=== PATIENT | female | born 1965 | race Caucasian/White ===

== ENCOUNTER 2016-08-04 15:33 | Emergency (ER) | payer OTHER ==
[~2016-08-04] VITALS: Ht 154.9 cm; Wt 137.0 kg
[~2016-08-04 15:33] MED LIST: ALDACTONE25 MG PO; AMPICILLIN500 MG PO; ANTIVERT12.5 MG PO; AZU500; AZU500 PO; BACO TOP; CAL240 PO; CEPHALEXIN250 MG; CLONIDINE HCL0.1 MG PO; COLACE100 MG PO; CYMBALTA30 M1 PO; DELTASONE5 MG PO; ECO81 PO; ENALAPRIL20 MG; ENALAPRIL20 MG PO; FER300 PO; FERRALET 901 TAB; FLE10 PO; FUROSEMIDE20 MG; GLU5 PO; GLU850 PO; HIBICLENS118 ML TOP; IBUPROFEN400 MG; K10; LAC PO; LASIX40 MG; LEVAQUIN750 MG PO; LIPI10 PO; LYRICA150 M1 PO; MEDDP PO; METFORMIN ER500 M1 PO; METFORMIN500 MG PO; METHOTREXATE2.5; METHOTREXATE2.5 M2 PO; NOR10T PO; OMEPRAZOLE DR20 M1 PO; ORAPRED ODT10 MG PO; ORASONE5 MG PO; PLA200; PLA200 PO; PRE5 PO; PREDNISONE1 MG; PROVENTIL0.09 MG/A1 INH; QVAR0.04 MG/Ac; SALMETEROL IH; SOMA350 MG PO; SPIRIVA18 MC1 INH; TIZANIDINE2 MG; VENTOLIN H0.09 MG/A1 INH; VERAPAMIL HCL240 MG PO; VERAPAMIL240 MG; VERAPAMIL240 MG PO; VITC PO; ZOC10 PO; [UNRECOGNIZED DRUG - OTHER] PO; [UNRECOGNIZED DRUG - OTHER] PO; [UNRECOGNIZED DRUG - REMARK] PO
[2016-08-04 16:53] LABS: BASOPHIL % 0.7 % (0-2); CALCIUM 8.3 mg/dL (8.5-10.1); CARBON DIOXIDE 35.5 mmol/L (21-32); CHLORIDE SERUM 99 mmol/L (98-107); CREATININE SERUM 0.9 mg/dL (0.6-1.0); GFR1 > 60 mL/min; GLUCOSE SERUM 355 mg/dL (74-106); PLATELET COUNT 262 x10^3mcL (130-400); SODIUM SERUM 134 mmol/L (136-145)
[2016-08-04 16:54] LABS: RED CELL DISTRIBUTION WIDTH 19.7 % (11.5-14.5)
[2016-08-04 17:15] LABS: ALBUMIN 2.7 g/dL (3.4-5.0); ALKALINE PHOSPHATASE 146 U/L (46-116); ALT/SGPT 16 U/L (14-59); AST/SGOT 14 U/L (15-37); BILIRUBIN TOTAL 0.24 mg/dL (0.20-1.00); CK-MB < 0.5 ng/mL (0-3.6); CREATINE KINASE 41 U/L (26-192); TOTAL PROTEIN, SERUM 8.1 g/dL (6.4-8.2)
[2016-08-04 18:35] LABS: UA SPECIFIC GRAVITY 1.015 (1.005-1.035); microscopic required? YES; urine erythrocyte TRACE (NEGATIVE)
[2016-08-04 20:30] VITALS: BP 152/81
== END 2016-08-04 20:30 | disposition home or self-care (01) ==
LOC: ED 15:33
PROVIDERS: Emergency Medicine
DX: N39.0 Urinary tract infection, site not specified (principal); I10 Essential (primary) hypertension; E11.65 Type 2 diabetes mellitus with hyperglycemia; F41.9 Anxiety disorder, unspecified; M79.7 Fibromyalgia; Z79.84 Long term (current) use of oral hypoglycemic drugs
CPT/HCPCS: 82962; 83880; 85378; J1815; J1885; J7030; J7613; J7644; Q0092

== ENCOUNTER 2016-10-09 16:20 | Inpatient (IN) | payer OTHER ==
[~2016-10-09] VITALS: Ht 154.9 cm; Wt 136.7 kg
[~2016-10-09 16:20] MED LIST changes: -IBUPROFEN400 MG; +IBUPROFEN400 MG PO; -K10; +K10 PO
[2016-10-09 19:57] LABS: CALCIUM 8.5 mg/dL (8.5-10.1); CARBON DIOXIDE 32.9 mmol/L (21-32); CHLORIDE SERUM 96 mmol/L (98-107); CREATININE SERUM 0.7 mg/dL (0.6-1.0); GFR1 > 60 mL/min; GLUCOSE SERUM 197 mg/dL (74-106); POTASSIUM SERUM 3.6 mmol/L (3.5-5.1); SODIUM SERUM 135 mmol/L (136-145)
[2016-10-09 20:00] LABS: ALKALINE PHOSPHATASE 124 U/L (46-116); ALT/SGPT 19 U/L (14-59); AST/SGOT 16 U/L (15-37); BILIRUBIN TOTAL 0.38 mg/dL (0.20-1.00)
[2016-10-09 20:02] LABS: ALBUMIN 2.7 g/dL (3.4-5.0); TOTAL PROTEIN, SERUM 8.5 g/dL (6.4-8.2)
[2016-10-09 20:13] LABS: BASOPHIL % 0.3 % (0-2); PLATELET COUNT 263 x10^3mcL (130-400)
[2016-10-09 20:26] LABS: RED CELL DISTRIBUTION WIDTH 18.3 % (11.5-14.5)
[2016-10-09] MEDS ORDERED: KLOR-CON M2020 MEQ PO (20:28)
[2016-10-09] MEDS ORDERED: ROBAXIN-750750 MG PO (20:30)
[2016-10-09] MEDS ORDERED: OMEPRAZOLE40 M1 PO (20:31)
[2016-10-09] MEDS ORDERED: METFORMIN HCL500 MG PO (20:33)
[2016-10-09] MEDS ORDERED: AMITRIPTYLINE H10 MG PO (20:34)
[2016-10-09] MEDS ORDERED: KLOR-CON SPRINK8 MEQ PO (20:37)
[2016-10-09] MEDS ORDERED: GLUCOTROL5 MG PO (20:38)
[2016-10-09 20:43] LABS: rbc morphology (normal/abnorm) ABNORMAL (NORMAL)
[2016-10-09 21:14] VITALS: BP 142/82
[2016-10-09 21:17] LABS: CHOLESTEROL/HDL RATIO 6.3; MAGNESIUM 1.7 mg/dL (1.8-2.4); PHOSPHOROUS 2.2 mg/dL (2.5-4.9)
[2016-10-09 21:24] LABS: FREE T4 1.21 ng/dL (0.76-1.46); FREE THYROXINE INDEX 2.8 ug/dL (1.4-4.5); T4(THYROXINE) 8.9 ug/dL (4.7-13.3)
[2016-10-09 21:25] LABS: T3 TOTAL 1.28 ng/mL
[2016-10-09 22:55] VITALS: BP 142/82
[2016-10-09] MEDS ORDERED: TRAMADOL HCL50 MG PO (23:33)
[2016-10-10 00:42] LABS: UA SPECIFIC GRAVITY 1.015 (1.005-1.035); microscopic required? YES; urine erythrocyte 1+ (NEGATIVE)
[2016-10-10 00:56] LABS: AMPHETAMINE QUAL UR NONE DETECTED (NEG <=1000)
[2016-10-10 04:37] LABS: BASOPHIL % 0.1 % (0-2); PLATELET COUNT 237 x10^3mcL (130-400)
[2016-10-10 04:46] LABS: CALCIUM 8.6 mg/dL (8.5-10.1); CARBON DIOXIDE 37.4 mmol/L (21-32); CHLORIDE SERUM 96 mmol/L (98-107); CREATININE SERUM 0.9 mg/dL (0.6-1.0); GFR1 > 60 mL/min; GLUCOSE SERUM 284 mg/dL (74-106); PHOSPHOROUS 4.4 mg/dL (2.5-4.9); SODIUM SERUM 136 mmol/L (136-145)
[2016-10-10 06:56] VITALS: BP 145/75
[2016-10-10 09:33] VITALS: BP 143/75
[2016-10-10 14:15] VITALS: BP 138/75
[2016-10-10 17:27] VITALS: BP 144/75
[2016-10-10 20:37] VITALS: BP 132/62
[2016-10-11 05:31] VITALS: BP 149/71
[2016-10-11 07:14] LABS: BASOPHIL % 0.4 % (0-2); PLATELET COUNT 226 x10^3mcL (130-400)
[2016-10-11 07:39] LABS: RED CELL DISTRIBUTION WIDTH 18.2 % (11.5-14.5)
[2016-10-11 07:56] LABS: CALCIUM 8.6 mg/dL (8.5-10.1); CARBON DIOXIDE 37.4 mmol/L (21-32); CHLORIDE SERUM 99 mmol/L (98-107); CREATININE SERUM 0.7 mg/dL (0.6-1.0); GFR1 > 60 mL/min; GLUCOSE SERUM 186 mg/dL (74-106); PHOSPHOROUS 3.6 mg/dL (2.5-4.9); POTASSIUM SERUM 4.2 mmol/L (3.5-5.1); SODIUM SERUM 139 mmol/L (136-145)
[2016-10-11 09:58] VITALS: BP 133/72
[2016-10-11 13:39] VITALS: BP 140/74
[2016-10-11 15:55] VITALS: BP 140/74
[2016-10-11] MEDS ORDERED: BACTROBAN21 (16:08)
[2016-10-11] MEDS ORDERED: VITC PO (17:20)
[2016-10-11] MEDS ORDERED: GLU10 PO (17:20)
[2016-10-11] MEDS ORDERED: LEVEMIR100 U/M1 SC (17:21)
[2016-10-11] MEDS ORDERED: METFORMIN HCL1000 MG PO (17:22)
[2016-10-11] MEDS ORDERED: CIPRO250 MG PO (17:23)
[2016-10-11] MEDS ORDERED: LAC PO (17:24)
[2016-10-11] MEDS ORDERED: BG FS (17:24)
[2016-10-11] MEDS ORDERED: CYMBALTA30 M1 PO (17:25)
[2016-10-11] MEDS ORDERED: NEU300 PO (17:25)
[2016-10-11] MEDS ORDERED: HIBICLENS118 ML TOP (17:30)
[2016-10-12 10:12] VITALS: Ht 154.9 cm; Wt 136.7 kg
== END 2016-10-11 18:20 | disposition home or self-care (01) | DRG 203 ==
LOC: ED 16:20 → DU 20:27
PROVIDERS: Emergency Medicine; Family Medicine; ADMIT Family Medicine
DX: M94.0 Chondrocostal junction syndrome [Tietze] (principal); N17.0 Acute kidney failure with tubular necrosis; E43 Unspecified severe protein-calorie malnutrition; M32.9 Systemic lupus erythematosus, unspecified; I11.0 Hypertensive heart disease with heart failure; I50.9 Heart failure, unspecified; E87.1 Hypo-osmolality and hyponatremia; N39.0 Urinary tract infection, site not specified; S60.221A Contusion of right hand, initial encounter; E11.9 Type 2 diabetes mellitus without complications; E66.01 Morbid (severe) obesity due to excess calories; J45.909 Unspecified asthma, uncomplicated; K21.9 Gastro-esophageal reflux disease without esophagitis; E78.5 Hyperlipidemia, unspecified; Z90.49 Acquired absence of other specified parts of digestive tract; Z98.51 Tubal ligation status; Z79.82 Long term (current) use of aspirin; Z82.3 Family history of stroke; Z82.49 Family history of ischemic heart disease and other diseases of the circulatory system; Z80.9 Family history of malignant neoplasm, unspecified; M79.7 Fibromyalgia; E83.39 Other disorders of phosphorus metabolism; F41.9 Anxiety disorder, unspecified; Z68.43 Body mass index [BMI] 50.0-59.9, adult; J44.9 Chronic obstructive pulmonary disease, unspecified
CPT/HCPCS: 82962; 83880; 84439; 94150; C9113; J0696; J1170; J1940; J7030; J7620; J7626; Q0092

== ENCOUNTER 2017-04-12 19:00 | Inpatient (IN) | payer OTHER ==
[~2017-04-12] VITALS: Ht 154.9 cm; Wt 131.5 kg
[~2017-04-12 19:00] MED LIST changes: +AMITRIPTYLINE H10 MG PO; +BACTROBAN21; +BG FS; +CIPRO250 MG PO; +GLU10 PO; +GLUCOTROL5 MG PO; +KLOR-CON M2020 MEQ PO; +KLOR-CON SPRINK8 MEQ PO; +LEVEMIR100 U/M1 SC; +METFORMIN HCL1000 MG PO; +METFORMIN HCL500 MG PO; +NEU300 PO; +OMEPRAZOLE40 M1 PO; +ROBAXIN-750750 MG PO; +TRAMADOL HCL50 MG PO
[2017-04-12 20:59] LABS: BASOPHIL % 0.3 % (0-2); PLATELET COUNT 276 x10^3mcL (130-400)
[2017-04-12 21:00] LABS: RED CELL DISTRIBUTION WIDTH 19.3 % (11.5-14.5)
[2017-04-12 21:10] LABS: CALCIUM 8.6 mg/dL (8.5-10.1); CARBON DIOXIDE 32.7 mmol/L (21-32); CHLORIDE SERUM 98 mmol/L (98-107); CREATININE SERUM 0.8 mg/dL (0.6-1.0); GFR1 > 60 mL/min; GLUCOSE SERUM 218 mg/dL (74-106); POTASSIUM SERUM 3.6 mmol/L (3.5-5.1); SODIUM SERUM 136 mmol/L (136-145)
[2017-04-12 21:15] LABS: ALKALINE PHOSPHATASE 119 U/L (46-116); ALT/SGPT 22 U/L (14-59); AST/SGOT 13 U/L (15-37); BILIRUBIN TOTAL 0.2 mg/dL (0.20-1.00); TOTAL PROTEIN, SERUM 8.9 g/dL (6.4-8.2)
[2017-04-12] MEDS ORDERED: QVAR0.08 MG/Ac IH (21:20)
[2017-04-12 23:05] LABS: PHOSPHOROUS 2.3 mg/dL (2.5-4.9)
[2017-04-12 23:11] LABS: UA SPECIFIC GRAVITY 1.025 (1.005-1.035); microscopic required? YES; urine erythrocyte NEGATIVE (NEGATIVE)
[2017-04-12 23:14] LABS: FREE T4 1.04 ng/dL (0.76-1.46); FREE THYROXINE INDEX 2.5 ug/dL (1.4-4.5); T4(THYROXINE) 8.6 ug/dL (4.7-13.3)
[2017-04-12 23:22] LABS: CHOLESTEROL/HDL RATIO 7.2
[2017-04-12 23:27] LABS: AMPHETAMINE QUAL UR NONE DETECTED (NEG <=1000)
[2017-04-12 23:38] VITALS: BP 164/60
[2017-04-12 23:42] VITALS: Ht 154.9 cm; Wt 131.5 kg
[2017-04-13 02:55] LABS: T3 TOTAL 1.21 ng/mL
[2017-04-13 03:28] VITALS: BP 164/60
[2017-04-13 05:16] VITALS: BP 148/70
[2017-04-13 09:00] VITALS: BP 175/65
[2017-04-13 12:26] LABS: BASOPHIL % 0.3 % (0-2); PLATELET COUNT 270 x10^3mcL (130-400)
[2017-04-13 12:29] LABS: RED CELL DISTRIBUTION WIDTH 19.3 % (11.5-14.5)
[2017-04-13 12:36] LABS: CALCIUM 8.2 mg/dL (8.5-10.1); CARBON DIOXIDE 31.6 mmol/L (21-32); CHLORIDE SERUM 101 mmol/L (98-107); CREATININE SERUM 0.7 mg/dL (0.6-1.0); GFR1 > 60 mL/min; GLUCOSE SERUM 212 mg/dL (74-106); POTASSIUM SERUM 3.6 mmol/L (3.5-5.1); SODIUM SERUM 136 mmol/L (136-145)
[2017-04-13 13:07] VITALS: BP 169/78
[2017-04-13 18:15] VITALS: BP 155/93
[2017-04-13 21:56] VITALS: BP 169/79
[2017-04-14 03:14] LABS: BASOPHIL % 0.3 % (0-2); PLATELET COUNT 258 x10^3mcL (130-400)
[2017-04-14 03:21] LABS: RED CELL DISTRIBUTION WIDTH 19.3 % (11.5-14.5)
[2017-04-14 03:43] LABS: CALCIUM 8.4 mg/dL (8.5-10.1); CARBON DIOXIDE 32.9 mmol/L (21-32); CHLORIDE SERUM 101 mmol/L (98-107); CREATININE SERUM 0.7 mg/dL (0.6-1.0); GFR1 > 60 mL/min; GLUCOSE SERUM 150 mg/dL (74-106); MAGNESIUM 1.9 mg/dL (1.8-2.4); PHOSPHOROUS 3.8 mg/dL (2.5-4.9); POTASSIUM SERUM 3.8 mmol/L (3.5-5.1); SODIUM SERUM 139 mmol/L (136-145)
[2017-04-14 06:10] VITALS: BP 189/99
[2017-04-14 09:52] VITALS: BP 132/70
[2017-04-14 11:58] VITALS: BP 132/70
[2017-04-14] MEDS ORDERED: LEVAQUIN750 MG PO (12:05)
[2017-04-14] MEDS ORDERED: AMOXICILLIN/CLA1 TA1 PO (12:06)
[2017-04-14] MEDS ORDERED: VISBIOME 112.51 EACH PO (12:07)
[2017-04-14] MEDS ORDERED: FLONS (12:08)
[2017-04-14] MEDS ORDERED: MEDDP PO (12:08)
== END 2017-04-14 14:38 | disposition home or self-care (01) | DRG 720 ==
LOC: ED 19:00 → DU 22:29
PROVIDERS: Emergency Medicine; Family Medicine; Student in an Organized Health Care Education/Training Program
DX: A41.9 Sepsis, unspecified organism (principal); N17.0 Acute kidney failure with tubular necrosis; J69.0 Pneumonitis due to inhalation of food and vomit; M32.9 Systemic lupus erythematosus, unspecified; I11.0 Hypertensive heart disease with heart failure; Z68.43 Body mass index [BMI] 50.0-59.9, adult; I50.9 Heart failure, unspecified; J44.1 Chronic obstructive pulmonary disease with (acute) exacerbation; E83.39 Other disorders of phosphorus metabolism; N39.0 Urinary tract infection, site not specified; R65.20 Severe sepsis without septic shock; F41.9 Anxiety disorder, unspecified; M79.7 Fibromyalgia; E78.5 Hyperlipidemia, unspecified; F41.8 Other specified anxiety disorders; Z79.84 Long term (current) use of oral hypoglycemic drugs; F32.9 Major depressive disorder, single episode, unspecified; E66.01 Morbid (severe) obesity due to excess calories; K21.9 Gastro-esophageal reflux disease without esophagitis; H66.92 Otitis media, unspecified, left ear
CPT/HCPCS: 82962; 83880; 84439; 87804; 90658; 94150; J1815; J1885; J1956; J2930; J7030; J7613; J7620; J7644; Q0092

== ENCOUNTER 2017-07-27 14:57 | Inpatient (IN) | payer OTHER ==
[~2017-07-27] VITALS: Ht 154.9 cm; Wt 132.9 kg
[~2017-07-27 14:57] MED LIST changes: +AMOXICILLIN/CLA1 TA1 PO; +FLONS; +QVAR0.08 MG/Ac IH; +VISBIOME 112.51 EACH PO
[2017-07-27 15:42] LABS: BASOPHIL % 0.3 % (0-2); PLATELET COUNT 294 x10^3mcL (130-400)
[2017-07-27 15:48] LABS: CALCIUM 8.4 mg/dL (8.5-10.1); CHLORIDE SERUM 98 mmol/L (98-107); CREATININE SERUM 0.7 mg/dL (0.6-1.0); GFR1 > 60 mL/min; GLUCOSE SERUM 208 mg/dL (74-106); POTASSIUM SERUM 3.9 mmol/L (3.5-5.1); SODIUM SERUM 137 mmol/L (136-145)
[2017-07-27 15:58] LABS: ALKALINE PHOSPHATASE 121 U/L (46-116); ALT/SGPT 21 U/L (14-59); AST/SGOT 16 U/L (15-37); BILIRUBIN TOTAL 0.36 mg/dL (0.20-1.00); TOTAL PROTEIN, SERUM 8.1 g/dL (6.4-8.2)
[2017-07-27 16:00] LABS: ALBUMIN 2.7 g/dL (3.4-5.0)
[2017-07-27 16:49] LABS: MAGNESIUM 1.9 mg/dL (1.8-2.4); PHOSPHOROUS 2.6 mg/dL (2.5-4.9)
[2017-07-27 16:52] LABS: CHOLESTEROL/HDL RATIO 6.7
[2017-07-27 16:57] LABS: T3 TOTAL 1.09 ng/mL
[2017-07-27] MEDS ORDERED: TEMAZEPAM15 MG PO (17:11)
[2017-07-27] MEDS ORDERED: SPIRONOLACTONE25 MG PO (17:12)
[2017-07-27 17:28] LABS: FREE T4 1.07 ng/dL (0.76-1.46); FREE THYROXINE INDEX 2.9 ug/dL (1.4-4.5); T4(THYROXINE) 8.4 ug/dL (4.7-13.3)
[2017-07-27 17:30] VITALS: BP 158/71
[2017-07-27 17:45] VITALS: BP 158/71
[2017-07-27 21:35] VITALS: BP 151/77
[2017-07-28 00:17] LABS: UA SPECIFIC GRAVITY >=1.030 (1.005-1.035); microscopic required? YES; urine erythrocyte NEGATIVE (NEGATIVE)
[2017-07-28 02:27] LABS: AMPHETAMINE QUAL UR NONE DETECTED (NEG <=1000)
[2017-07-28 05:54] VITALS: BP 134/60
[2017-07-28 06:08] LABS: CALCIUM 8.8 mg/dL (8.5-10.1); CARBON DIOXIDE 28.6 mmol/L (21-32); CHLORIDE SERUM 97 mmol/L (98-107); CREATININE SERUM 0.8 mg/dL (0.6-1.0); GFR1 > 60 mL/min; GLUCOSE SERUM 386 mg/dL (74-106); POTASSIUM SERUM 4.2 mmol/L (3.5-5.1); SODIUM SERUM 135 mmol/L (136-145)
[2017-07-28 06:43] LABS: BASOPHIL % 0.1 % (0-2); PLATELET COUNT 299 x10^3mcL (130-400)
[2017-07-28 06:47] LABS: RED CELL DISTRIBUTION WIDTH 16.4 % (11.5-14.5)
[2017-07-28 07:04] VITALS: Ht 154.9 cm; Wt 132.9 kg
[2017-07-28 09:27] VITALS: BP 155/84
[2017-07-28 13:11] VITALS: BP 144/68
[2017-07-28 17:25] VITALS: BP 133/79
[2017-07-28 21:19] VITALS: BP 122/56
[2017-07-29 05:53] VITALS: BP 121/56
[2017-07-29 06:30] LABS: CALCIUM 8.4 mg/dL (8.5-10.1); CARBON DIOXIDE 30.2 mmol/L (21-32); CHLORIDE SERUM 100 mmol/L (98-107); CREATININE SERUM 0.9 mg/dL (0.6-1.0); GFR1 > 60 mL/min; GLUCOSE SERUM 365 mg/dL (74-106); POTASSIUM SERUM 4.3 mmol/L (3.5-5.1); SODIUM SERUM 134 mmol/L (136-145)
[2017-07-29 08:04] LABS: PLATELET COUNT 291 x10^3mcL (130-400)
[2017-07-29 08:06] LABS: BASOPHIL % 0 % (0-2); RED CELL DISTRIBUTION WIDTH 16.8 % (11.5-14.5)
[2017-07-29 09:52] VITALS: BP 133/65
[2017-07-29] MEDS ORDERED: CLEOCIN HCL300 MG PO (16:36)
[2017-07-29] MEDS ORDERED: LEVAQUIN750 MG PO (16:36)
[2017-07-29] MEDS ORDERED: LAC PO (16:37)
[2017-07-29 16:47] VITALS: BP 133/65
[2017-07-29] MEDS ORDERED: FER300 PO (16:49)
[2017-07-29] MEDS ORDERED: CLA10 PO (16:49)
[2017-07-29] MEDS ORDERED: MEDDP PO (16:51)
[2017-07-29] MEDS ORDERED: BACO TOP (16:53)
[2017-07-29] MEDS ORDERED: HIBICLENS118 ML TOP (16:53)
[2017-07-29] MEDS ORDERED: MONTELUKAST SOD10 M1 PO (16:55)
[2017-07-29 18:20] VITALS: BP 120/61
== END 2017-07-29 18:56 | disposition home or self-care (01) | DRG 133 ==
LOC: ED 14:57 → DU 15:59
PROVIDERS: Emergency Medicine; Family Medicine
PROC: 5A09357 Assistance with Respiratory Ventilation, Less than 24 Consecutive Hours, Continuous Positive Airway Pressure (ICD-10-PCS; principal; 2017-07-29)
DX: J96.00 Acute respiratory failure, unspecified whether with hypoxia or hypercapnia (principal); N17.0 Acute kidney failure with tubular necrosis; E43 Unspecified severe protein-calorie malnutrition; J18.1 Lobar pneumonia, unspecified organism; I11.0 Hypertensive heart disease with heart failure; M32.9 Systemic lupus erythematosus, unspecified; I50.9 Heart failure, unspecified; E11.65 Type 2 diabetes mellitus with hyperglycemia; E78.5 Hyperlipidemia, unspecified; E86.0 Dehydration; F32.9 Major depressive disorder, single episode, unspecified; F41.9 Anxiety disorder, unspecified; M79.7 Fibromyalgia; E66.2 Morbid (severe) obesity with alveolar hypoventilation; J44.1 Chronic obstructive pulmonary disease with (acute) exacerbation; Z68.43 Body mass index [BMI] 50.0-59.9, adult; Z90.49 Acquired absence of other specified parts of digestive tract; Z98.51 Tubal ligation status; Z82.49 Family history of ischemic heart disease and other diseases of the circulatory system; Z82.3 Family history of stroke; Z83.6 Family history of other diseases of the respiratory system; Z80.9 Family history of malignant neoplasm, unspecified; Z83.49 Family history of other endocrine, nutritional and metabolic diseases; Z91.19 Patient's noncompliance with other medical treatment and regimen
CPT/HCPCS: 36600; 82962; 83880; 84439; 94150; J1644; J1815; J1956; J2920; J2930; J3010; J3490; J7030; J7613; J7620; J7626; J7644; Q0092

== ENCOUNTER 2017-09-02 20:07 | Emergency (ER) | payer OTHER ==
[~2017-09-02] VITALS: Ht 154.9 cm; Wt 126.5 kg
[~2017-09-02 20:07] MED LIST changes: +CLA10 PO; +CLEOCIN HCL300 MG PO; +MONTELUKAST SOD10 M1 PO; +SPIRONOLACTONE25 MG PO; +TEMAZEPAM15 MG PO
[2017-09-02 20:19] VITALS: Ht 154.9 cm; Wt 126.5 kg
[2017-09-02 21:37] LABS: microscopic required? YES; urine erythrocyte TRACE (NEGATIVE)
[2017-09-02 21:44] LABS: AMPHETAMINE QUAL UR NONE DETECTED (NEG <=1000)
[2017-09-02 21:48] LABS: BASOPHIL % 0.4 % (0-2); PLATELET COUNT 314 x10^3mcL (130-400); RED CELL DISTRIBUTION WIDTH 17.7 % (11.5-14.5)
[2017-09-02 21:54] LABS: CALCIUM 8.5 mg/dL (8.5-10.1); CARBON DIOXIDE 30.8 mmol/L (21-32); CHLORIDE SERUM 101 mmol/L (98-107); CREATININE SERUM 0.9 mg/dL (0.6-1.0); GFR1 > 60 mL/min; GLUCOSE SERUM 194 mg/dL (74-106); SODIUM SERUM 137 mmol/L (136-145)
[2017-09-02 22:10] LABS: ALKALINE PHOSPHATASE 147 U/L (46-116); ALT/SGPT 27 U/L (14-59); AMYLASE 69 U/L (25-115); AST/SGOT 18 U/L (15-37); BILIRUBIN TOTAL 0.3 mg/dL (0.20-1.00); CHOLESTEROL 189 mg/dL (<200); HDL CHOLESTEROL 24 mg/dL (40-60); LIPASE 219 IU/L (73-393); T4(THYROXINE) 8.2 ug/dL (4.7-13.3); TOTAL PROTEIN, SERUM 7.9 g/dL (6.4-8.2)
[2017-09-02 23:32] VITALS: BP 126/85
== END 2017-09-02 23:33 | disposition home or self-care (01) ==
LOC: ED 20:07
PROVIDERS: Emergency Medicine
DX: J44.9 Chronic obstructive pulmonary disease, unspecified (principal); E11.9 Type 2 diabetes mellitus without complications; I10 Essential (primary) hypertension; E78.00 Pure hypercholesterolemia, unspecified; M79.7 Fibromyalgia; E66.01 Morbid (severe) obesity due to excess calories; Z98.51 Tubal ligation status; Z90.49 Acquired absence of other specified parts of digestive tract
CPT/HCPCS: 36415; 36600; 83880

== ENCOUNTER 2017-09-23 18:28 | Emergency (ER) | payer OTHER ==
[~2017-09-23] VITALS: Ht 154.9 cm; Wt 125.4 kg
[2017-09-23 20:00] LABS: BASOPHIL % 0.6 % (0-2); PLATELET COUNT 305 x10^3mcL (130-400)
[2017-09-23 20:01] LABS: RED CELL DISTRIBUTION WIDTH 17.5 % (11.5-14.5)
[2017-09-23 20:16] LABS: CALCIUM 9.1 mg/dL (8.5-10.1); CARBON DIOXIDE 31.6 mmol/L (21-32); CHLORIDE SERUM 96 mmol/L (98-107); GFR1 > 60 mL/min; GLUCOSE SERUM 191 mg/dL (74-106); POTASSIUM SERUM 3.9 mmol/L (3.5-5.1); SODIUM SERUM 136 mmol/L (136-145)
[2017-09-23 20:21] LABS: ALBUMIN 3.2 g/dL (3.4-5.0); ALKALINE PHOSPHATASE 136 U/L (46-116); ALT/SGPT 22 U/L (14-59); AST/SGOT 17 U/L (15-37); BILIRUBIN TOTAL 0.4 mg/dL (0.20-1.00); TOTAL PROTEIN, SERUM 8.2 g/dL (6.4-8.2)
[2017-09-23 22:31] LABS: UA SPECIFIC GRAVITY >=1.030 (1.005-1.035); microscopic required? YES; urine erythrocyte 1+ (NEGATIVE)
[2017-09-24 00:35] VITALS: BP 119/87
== END 2017-09-24 00:35 | disposition home or self-care (01) ==
LOC: ED 18:28
PROVIDERS: Emergency Medicine; Specialist
DX: N12 Tubulo-interstitial nephritis, not specified as acute or chronic (principal); N89.8 Other specified noninflammatory disorders of vagina; K76.0 Fatty (change of) liver, not elsewhere classified; I11.0 Hypertensive heart disease with heart failure; I50.9 Heart failure, unspecified; J44.9 Chronic obstructive pulmonary disease, unspecified; E11.9 Type 2 diabetes mellitus without complications; M79.7 Fibromyalgia
CPT/HCPCS: 83880; J0696; J1885; J3010

== ENCOUNTER 2017-10-20 17:15 | Emergency (ER) | payer OTHER ==
[~2017-10-20] VITALS: Ht 154.9 cm; Wt 127.9 kg
[2017-10-20 17:18] VITALS: Ht 154.9 cm; Wt 127.9 kg
[2017-10-20 18:40] LABS: BASOPHIL % 0.3 % (0-2); PLATELET COUNT 236 x10^3mcL (130-400)
[2017-10-20 19:03] LABS: CALCIUM 8.6 mg/dL (8.5-10.1); CARBON DIOXIDE 32.8 mmol/L (21-32); CHLORIDE SERUM 100 mmol/L (98-107); CREATININE SERUM 0.8 mg/dL (0.6-1.0); GFR1 > 60 mL/min; GLUCOSE SERUM 257 mg/dL (74-106); POTASSIUM SERUM 3.8 mmol/L (3.5-5.1); SODIUM SERUM 137 mmol/L (136-145)
[2017-10-20 20:30] LABS: UA SPECIFIC GRAVITY 1.025 (1.005-1.035); microscopic required? YES; urine erythrocyte TRACE (NEGATIVE)
[2017-10-20 21:09] VITALS: BP 133/81
== END 2017-10-20 21:09 | disposition home or self-care (01) ==
LOC: ED 17:15
PROVIDERS: Emergency Medicine
DX: M54.5 Low back pain (principal); J44.1 Chronic obstructive pulmonary disease with (acute) exacerbation; I50.9 Heart failure, unspecified; I11.9 Hypertensive heart disease without heart failure; E11.9 Type 2 diabetes mellitus without complications; M79.7 Fibromyalgia; Z90.49 Acquired absence of other specified parts of digestive tract
CPT/HCPCS: 83880; J1885; J3010; J7030; Q0092

== ENCOUNTER 2017-10-27 16:11 | Emergency (ER) | payer OTHER ==
[~2017-10-27] VITALS: Ht 154.9 cm; Wt 127.0 kg
[2017-10-27 16:13] VITALS: Ht 154.9 cm; Wt 127.0 kg
[2017-10-27 16:54] LABS: BASOPHIL % 0.5 % (0-2); PLATELET COUNT 271 x10^3mcL (130-400)
[2017-10-27 16:56] LABS: RED CELL DISTRIBUTION WIDTH 16.3 % (11.5-14.5)
[2017-10-27 17:01] LABS: CARBON DIOXIDE 30.3 mmol/L (21-32); CHLORIDE SERUM 102 mmol/L (98-107); CREATININE SERUM 0.8 mg/dL (0.6-1.0); GFR1 > 60 mL/min; GLUCOSE SERUM 263 mg/dL (74-106); SODIUM SERUM 133 mmol/L (136-145)
[2017-10-27 17:06] LABS: ALKALINE PHOSPHATASE 147 U/L (46-116); ALT/SGPT 16 U/L (14-59); AST/SGOT 15 U/L (15-37); BILIRUBIN TOTAL 0.3 mg/dL (0.20-1.00)
[2017-10-27 17:54] LABS: UA SPECIFIC GRAVITY >=1.030 (1.005-1.035); microscopic required? YES; urine erythrocyte NEGATIVE (NEGATIVE)
[2017-10-27 21:53] VITALS: BP 164/92
== END 2017-10-27 21:53 | disposition home or self-care (01) ==
LOC: ED 16:11
PROVIDERS: Emergency Medicine
DX: M54.9 Dorsalgia, unspecified (principal); E11.9 Type 2 diabetes mellitus without complications; I11.0 Hypertensive heart disease with heart failure; I50.9 Heart failure, unspecified; J44.9 Chronic obstructive pulmonary disease, unspecified; Z90.49 Acquired absence of other specified parts of digestive tract
CPT/HCPCS: 83880; J0696; J1885; J2060; J3010; J3490; J7030; Q0092

== ENCOUNTER 2018-02-16 20:56 | Emergency (ER) | payer OTHER ==
[~2018-02-16] VITALS: Ht 154.9 cm; Wt 125.6 kg
[2018-02-16 21:06] VITALS: Ht 154.9 cm; Wt 125.6 kg
[2018-02-16 22:06] LABS: BASOPHIL % 0.5 % (0-2); PLATELET COUNT 270 x10^3mcL (130-400)
[2018-02-16 22:10] LABS: RED CELL DISTRIBUTION WIDTH 16.3 % (11.5-14.5)
[2018-02-16 22:17] LABS: CALCIUM 8.7 mg/dL (8.5-10.1); CARBON DIOXIDE 29.9 mmol/L (21-32); CHLORIDE SERUM 99 mmol/L (98-107); CREATININE SERUM 0.8 mg/dL (0.6-1.0); GFR1 > 60 mL/min; GLUCOSE SERUM 328 mg/dL (74-106); SODIUM SERUM 135 mmol/L (136-145)
[2018-02-16 22:18] LABS: POTASSIUM SERUM 3.5 mmol/L (3.5-5.1)
[2018-02-16 22:23] LABS: ALKALINE PHOSPHATASE 151 U/L (46-116); ALT/SGPT 22 U/L (14-59); AST/SGOT 14 U/L (15-37); BILIRUBIN TOTAL 0.3 mg/dL (0.20-1.00)
[2018-02-16 22:43] LABS: TOTAL PROTEIN, SERUM 8.9 g/dL (6.4-8.2)
[2018-02-17 01:15] VITALS: BP 167/111
== END 2018-02-17 01:15 | disposition home or self-care (01) ==
LOC: ED 20:56
PROVIDERS: Emergency Medicine
DX: K57.90 Diverticulosis of intestine, part unspecified, without perforation or abscess without bleeding (principal); J44.9 Chronic obstructive pulmonary disease, unspecified; E11.65 Type 2 diabetes mellitus with hyperglycemia; I11.0 Hypertensive heart disease with heart failure; I50.9 Heart failure, unspecified; F41.9 Anxiety disorder, unspecified; M32.9 Systemic lupus erythematosus, unspecified; Z98.51 Tubal ligation status; Z90.49 Acquired absence of other specified parts of digestive tract
CPT/HCPCS: J1885; J2270

== ENCOUNTER 2018-04-16 20:41 | Inpatient (IN) | payer OTHER ==
[~2018-04-16] VITALS: Ht 154.9 cm; Wt 127.5 kg
[2018-04-16 20:49] VITALS: Ht 154.9 cm; Wt 127.5 kg
--- NOTE | 2018-04-16 20:51 | NUR ---
EKG IN PROGRESS BY EMT YAN IN TRIAGE.
--- NOTE | 2018-04-16 21:40 | NUR ---
AGENCY DOCUMENTATION DONE BY Staff Name/Title - : AMBER MCGRATH JR/STEPHANIE [employer] User ID - : [id number] Agency Name - : [employer] Time Documented - From - : 1899 To - : [id number]
--- NOTE | 2018-04-16 21:40 | NUR ---
ASSUMED PATIENT CARE, NURSING ASSESSMENT COMPLETED. STARTED ON CARDIAC MONITORING.
[2018-04-16 22:24] LABS: BASOPHIL % 0.7 % (0-2); PLATELET COUNT 255 x10^3mcL (130-400)
[2018-04-16 22:44] LABS: CALCIUM 9.2 mg/dL (8.5-10.1); CARBON DIOXIDE 28.9 mmol/L (21-32); CHLORIDE SERUM 99 mmol/L (98-107); CREATININE SERUM 0.8 mg/dL (0.6-1.0); GFR1 > 60 mL/min; GLUCOSE SERUM 297 mg/dL (74-106); POTASSIUM SERUM 3.7 mmol/L (3.5-5.1); SODIUM SERUM 135 mmol/L (136-145)
[2018-04-16 22:53] LABS: ALKALINE PHOSPHATASE 128 U/L (46-116); ALT/SGPT 21 U/L (14-59); AST/SGOT 10 U/L (15-37); BILIRUBIN TOTAL 0.1 mg/dL (0.20-1.00); TOTAL PROTEIN, SERUM 8.2 g/dL (6.4-8.2)
[2018-04-16 22:54] LABS: ALBUMIN 2.9 g/dL (3.4-5.0)
--- NOTE | 2018-04-16 23:55 | NUR ---
DISPO AND MEDICAL DECISION MAKING, INPATIENT ADMISSION FOR FURTHER MANAGEMENT. PATIENT CARE REPORT TO STEPHANIE BROWN. CONTINUITY OF CARE ENDORSED, PATIENT UPDATED ACCORDINGLY.
--- NOTE | 2018-04-17 00:17 | NUR ---
RECIEVED PATIENT AT 0015, AWAKE, A/O X4. PATIENT ORIENTED TO ROOM AND USE OF CALL LIGHT. SAFETY REINFOCRED. BED LOCKED AND IN LOWEST POSITION. WILL IMPLEMENT MD ORDERS.
[2018-04-17 00:26] VITALS: BP 144/81
[2018-04-17 00:35] LABS: MAGNESIUM 1.7 mg/dL (1.8-2.4)
[2018-04-17 00:37] LABS: CHOLESTEROL/HDL RATIO 7.1
[2018-04-17 00:45] VITALS: BP 144/81
--- NOTE | 2018-04-17 00:56 | NUR ---
RECEIVED PT VIA [facility], ACCOMPANIED BY RN AND TRANSPORTER. PT A/A/O X 4, CALM, COOPERATIVE. ABLE TO AMBULATE FROM [place] TO BED WITH SLOW, STEADY GAIT. CAME IN FOR CHEST PAIN; STATES BURNING PAIN ON RIGHT CHEST RADIATING TO MID CHEST, 6/10, CONSTANT, UNABLE TO STATE WHAT INCREASES/DECREASES PAIN, UNRELIEVED BY PAIN MEDICATIONS. FINE CRACKLES TO LYNETTE LUNG HAILE, CHEST RISING EVENLY, 2LNC, 100%, NO ACUTE RESPIRATORY DISTRESS NOTED. ORIENTED PT TO ROOM, BED CONTROLS, CALL LIGHT SYSTEM. SIDE RAILS UP X 2, BED IN LOW POSITION, CALL LIGHT WITHIN REACH. WILL ENDORSE TO STEPHANIE WATSON.
[2018-04-17 05:04] VITALS: BP 122/76
--- NOTE | 2018-04-17 06:43 | NUR ---
PATIENT IS AWAKE, NO SOB ON 2L NC, NO COMPLAINT OF PAIN. NO SIGNIFICANT EVENTS THIS SHIFT. WILL ENDORSE CARE TO [facility] NURSE.
[2018-04-17 07:44] LABS: CALCIUM 8.5 mg/dL (8.5-10.1); CARBON DIOXIDE 31.8 mmol/L (21-32); CHLORIDE SERUM 99 mmol/L (98-107); CREATININE SERUM 0.7 mg/dL (0.6-1.0); GFR1 > 60 mL/min; GLUCOSE SERUM 282 mg/dL (74-106); POTASSIUM SERUM 3.7 mmol/L (3.5-5.1); SODIUM SERUM 136 mmol/L (136-145)
[2018-04-17 08:55] VITALS: BP 119/62
--- NOTE | 2018-04-17 09:23 | NUR ---
AAO TIMES 4. 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 4. TELE # [address] [facility] CTA. NO SOB. O2 SAT ON 2L NC 97%. BS'S ACTIVE TIMES 4. OBESE. PLEASANT. TRACE EDEMA BLE. PERIHERAL PULSES PALPABLE. ON LASIX PO. IV SITE LAC PATENT, CDI. DENIES DISCOMFORT AT THIS TIME.
[2018-04-17 13:16] VITALS: BP 119/62
[2018-04-17 13:33] VITALS: BP 143/86
--- NOTE | 2018-04-17 13:40 | NUR ---
REMOVED IV ANGIO INTACT. GAVE HER DISCHARGE INSTRUCTIONS AND PRESCRIPTION. SHE VERBALIZED "I UNDERSTAND" TO THE DISCHARGE TEACHING, INSTRUCTIONS AND PRESCRIPTION.
== END 2018-04-17 13:35 | disposition home or self-care (01) | DRG 198 ==
LOC: ED 20:41 → DU 23:38
PROVIDERS: Emergency Medicine; ADMIT Internal Medicine
DX: I24.8 Other forms of acute ischemic heart disease (principal); M32.9 Systemic lupus erythematosus, unspecified; I11.0 Hypertensive heart disease with heart failure; I50.9 Heart failure, unspecified; E11.65 Type 2 diabetes mellitus with hyperglycemia; E66.2 Morbid (severe) obesity with alveolar hypoventilation; I25.10 Atherosclerotic heart disease of native coronary artery without angina pectoris; Z71.3 Dietary counseling and surveillance; M79.7 Fibromyalgia; J45.909 Unspecified asthma, uncomplicated; Z90.49 Acquired absence of other specified parts of digestive tract; Z98.51 Tubal ligation status; Z68.43 Body mass index [BMI] 50.0-59.9, adult
CPT/HCPCS: 82962; 83880; 90658; J1815; J2270; J2405; J2765; J7620; J7626

== ENCOUNTER 2018-09-23 13:44 | Emergency (ER) | payer OTHER ==
[~2018-09-23] VITALS: Ht 154.9 cm; Wt 124.3 kg
[2018-09-23 13:49] VITALS: Ht 154.9 cm; Wt 124.3 kg
[2018-09-23 15:58] LABS: BASOPHIL % 0.6 % (0-2); PLATELET COUNT 263 x10^3mcL (130-400)
[2018-09-23 16:03] LABS: RED CELL DISTRIBUTION WIDTH 16.4 % (11.5-14.5)
[2018-09-23 16:04] LABS: UA SPECIFIC GRAVITY >=1.030 (1.005-1.035); microscopic required? YES; urine erythrocyte NEGATIVE (NEGATIVE)
[2018-09-23 16:08] LABS: CALCIUM 8.8 mg/dL (8.5-10.1); CARBON DIOXIDE 31.3 mmol/L (21-32); CHLORIDE SERUM 104 mmol/L (98-107); CREATININE SERUM 0.7 mg/dL (0.6-1.0); GFR1 > 60 mL/min; GLUCOSE SERUM 217 mg/dL (74-106); POTASSIUM SERUM 3.8 mmol/L (3.5-5.1); SODIUM SERUM 144 mmol/L (136-145)
[2018-09-23 16:17] LABS: AMPHETAMINE QUAL UR NONE DETECTED (See below)
[2018-09-23 16:19] LABS: ALKALINE PHOSPHATASE 116 U/L (46-116); ALT/SGPT 18 U/L (14-59); AST/SGOT 10 U/L (15-37); BILIRUBIN TOTAL 0.29 mg/dL (0.20-1.00); CHOLESTEROL 190 mg/dL (<200); LIPASE 255 IU/L (73-393); MAGNESIUM 1.9 mg/dL (1.8-2.4); T4(THYROXINE) 7.4 ug/dL (4.7-13.3); TOTAL PROTEIN, SERUM 8.1 g/dL (6.4-8.2)
[2018-09-23 16:21] LABS: ALBUMIN 2.7 g/dL (3.4-5.0); HDL CHOLESTEROL 27 mg/dL (40-60)
[2018-09-23 19:33] VITALS: BP 143/77
== END 2018-09-23 19:33 | disposition home or self-care (01) ==
LOC: ED 13:44
PROVIDERS: Emergency Medicine
DX: R06.89 Other abnormalities of breathing (principal); E66.2 Morbid (severe) obesity with alveolar hypoventilation; I11.0 Hypertensive heart disease with heart failure; I50.9 Heart failure, unspecified; E46 Unspecified protein-calorie malnutrition; I10 Essential (primary) hypertension; E11.9 Type 2 diabetes mellitus without complications; M32.9 Systemic lupus erythematosus, unspecified; M79.7 Fibromyalgia; J44.9 Chronic obstructive pulmonary disease, unspecified; F41.9 Anxiety disorder, unspecified; Z90.49 Acquired absence of other specified parts of digestive tract; Z98.51 Tubal ligation status
CPT/HCPCS: 36415; 36600; 82962; 83880; Q0092

== ENCOUNTER 2018-10-18 16:07 | Emergency (ER) | payer OTHER ==
[~2018-10-18] VITALS: Ht 154.9 cm; Wt 125.2 kg
[2018-10-18 16:23] VITALS: Ht 154.9 cm; Wt 125.2 kg
[2018-10-18 19:45] VITALS: BP 117/54
== END 2018-10-18 19:45 | disposition home or self-care (01) ==
LOC: ED 16:07
DX: G43.909 Migraine, unspecified, not intractable, without status migrainosus (principal); M54.6 Pain in thoracic spine; I11.0 Hypertensive heart disease with heart failure; I50.9 Heart failure, unspecified; J44.9 Chronic obstructive pulmonary disease, unspecified; J45.909 Unspecified asthma, uncomplicated; F41.9 Anxiety disorder, unspecified; M79.7 Fibromyalgia; Z90.49 Acquired absence of other specified parts of digestive tract; Z98.51 Tubal ligation status
CPT/HCPCS: J1885; J2765

== ENCOUNTER 2018-12-15 12:33 | Emergency (ER) | payer OTHER ==
[~2018-12-15] VITALS: Ht 154.9 cm; Wt 122.5 kg
[2018-12-15 14:01] LABS: BASOPHIL % 0.4 % (0-2); PLATELET COUNT 257 x10^3mcL (130-400)
[2018-12-15 14:16] LABS: CALCIUM 8.1 mg/dL (8.5-10.1); CARBON DIOXIDE 34.1 mmol/L (21-32); CHLORIDE SERUM 101 mmol/L (98-107); CREATININE SERUM 0.8 mg/dL (0.6-1.0); GFR1 > 60 mL/min; GLUCOSE SERUM 404 mg/dL (74-106); POTASSIUM SERUM 3.9 mmol/L (3.5-5.1); RED CELL DISTRIBUTION WIDTH 16.5 % (11.5-14.5); SODIUM SERUM 139 mmol/L (136-145)
[2018-12-15 14:20] LABS: ALKALINE PHOSPHATASE 153 U/L (46-116); ALT/SGPT 16 U/L (14-59); AST/SGOT 14 U/L (15-37); BILIRUBIN TOTAL 0.3 mg/dL (0.20-1.00); TOTAL PROTEIN, SERUM 8.1 g/dL (6.4-8.2)
[2018-12-15 14:22] LABS: ALBUMIN 2.6 g/dL (3.4-5.0)
[2018-12-15 16:20] VITALS: BP 157/95
== END 2018-12-15 18:04 | disposition home or self-care (01) ==
LOC: ED 12:33
PROVIDERS: Emergency Medicine
DX: E11.65 Type 2 diabetes mellitus with hyperglycemia (principal); J44.9 Chronic obstructive pulmonary disease, unspecified; I50.9 Heart failure, unspecified; I11.0 Hypertensive heart disease with heart failure; M32.9 Systemic lupus erythematosus, unspecified; F41.9 Anxiety disorder, unspecified; M79.7 Fibromyalgia; Z90.49 Acquired absence of other specified parts of digestive tract; Z98.51 Tubal ligation status
CPT/HCPCS: 36415; 82962; 83880; 85378; J1815; Q0092

== ENCOUNTER 2019-02-06 13:37 | Emergency (ER) | payer OTHER ==
[~2019-02-06] VITALS: Ht 154.9 cm; Wt 124.3 kg
[2019-02-06 13:41] VITALS: Ht 154.9 cm; Wt 124.3 kg
[2019-02-06 16:01] LABS: microscopic required? YES; urine erythrocyte 3+ (NEGATIVE)
[2019-02-06 17:49] VITALS: BP 140/77
== END 2019-02-06 17:49 | disposition home or self-care (01) ==
LOC: ED 13:37
PROVIDERS: Emergency Medicine
DX: N39.0 Urinary tract infection, site not specified (principal); K57.10 Diverticulosis of small intestine without perforation or abscess without bleeding; J44.9 Chronic obstructive pulmonary disease, unspecified; I50.9 Heart failure, unspecified; I11.0 Hypertensive heart disease with heart failure; F41.9 Anxiety disorder, unspecified; M32.9 Systemic lupus erythematosus, unspecified; M79.7 Fibromyalgia; Z90.49 Acquired absence of other specified parts of digestive tract; Z98.51 Tubal ligation status
CPT/HCPCS: J0696; J1885

== ENCOUNTER 2019-04-15 17:23 | Emergency (ER) | payer OTHER ==
[~2019-04-15] VITALS: Ht 154.9 cm; Wt 126.1 kg
[2019-04-15 17:42] VITALS: Ht 154.9 cm; Wt 126.1 kg
[2019-04-15 18:55] LABS: BASOPHIL % 0.6 % (0-2); PLATELET COUNT 269 x10^3mcL (130-400)
[2019-04-15 18:56] LABS: RED CELL DISTRIBUTION WIDTH 17.3 % (11.5-14.5)
[2019-04-15 19:02] LABS: CALCIUM 8.6 mg/dL (8.5-10.1); CARBON DIOXIDE 35.6 mmol/L (21-32); CHLORIDE SERUM 98 mmol/L (98-107); CREATININE SERUM 0.7 mg/dL (0.6-1.0); GFR1 > 60 mL/min; GLUCOSE SERUM 316 mg/dL (74-106); POTASSIUM SERUM 3.6 mmol/L (3.5-5.1); SODIUM SERUM 132 mmol/L (136-145)
[2019-04-15 19:07] LABS: ALKALINE PHOSPHATASE 144 U/L (46-116); ALT/SGPT 20 U/L (14-59); AST/SGOT 6 U/L (15-37); BILIRUBIN TOTAL 0.3 mg/dL (0.20-1.00)
[2019-04-15 19:11] LABS: ALBUMIN 2.7 g/dL (3.4-5.0); TOTAL PROTEIN, SERUM 8.5 g/dL (6.4-8.2)
[2019-04-15 21:09] VITALS: BP 171/85
== END 2019-04-15 21:09 | disposition home or self-care (01) ==
LOC: ED 17:23
PROVIDERS: Emergency Medicine
DX: J84.9 Interstitial pulmonary disease, unspecified (principal); E11.65 Type 2 diabetes mellitus with hyperglycemia; M54.6 Pain in thoracic spine; E66.01 Morbid (severe) obesity due to excess calories; I11.0 Hypertensive heart disease with heart failure; I50.9 Heart failure, unspecified; E11.9 Type 2 diabetes mellitus without complications; J45.909 Unspecified asthma, uncomplicated; J44.9 Chronic obstructive pulmonary disease, unspecified; M79.7 Fibromyalgia; M19.90 Unspecified osteoarthritis, unspecified site; Z90.49 Acquired absence of other specified parts of digestive tract; Z98.51 Tubal ligation status
CPT/HCPCS: 36415; 82962; 83880

== ENCOUNTER 2019-05-20 19:09 | Inpatient (IN) | payer OTHER ==
[~2019-05-20] VITALS: Ht 154.9 cm; Wt 109.9 kg
[2019-05-20 19:56] LABS: BASOPHIL % 0.5 % (0-2); PLATELET COUNT 255 x10^3mcL (130-400)
[2019-05-20 20:00] LABS: RED CELL DISTRIBUTION WIDTH 17.3 % (11.5-14.5)
[2019-05-20 20:11] LABS: CALCIUM 8.5 mg/dL (8.5-10.1); CARBON DIOXIDE 33.4 mmol/L (21-32); CHLORIDE SERUM 98 mmol/L (98-107); CREATININE SERUM 0.8 mg/dL (0.6-1.0); GFR1 > 60 mL/min; GLUCOSE SERUM 401 mg/dL (74-106); POTASSIUM SERUM 3.8 mmol/L (3.5-5.1); SODIUM SERUM 138 mmol/L (136-145)
[2019-05-20 20:13] LABS: microscopic required? YES; urine erythrocyte 1+ (NEGATIVE)
[2019-05-20 20:26] LABS: ALKALINE PHOSPHATASE 164 U/L (46-116); ALT/SGPT 20 U/L (14-59); AST/SGOT 9 U/L (15-37); BILIRUBIN TOTAL 0.2 mg/dL (0.20-1.00); C REACTIVE PROTEIN 3.6 mg/dL (<=0.9)
[2019-05-20 20:30] LABS: ALBUMIN 2.5 g/dL (3.4-5.0)
[2019-05-20] MEDS ORDERED: METFORMIN HCL500 M4 PO (20:41)
[2019-05-20] MEDS ORDERED: TOPROL XL25 MG PO (20:42)
[2019-05-20] MEDS ORDERED: POTASSIUM CHLOR8 MEQ PO (20:42)
[2019-05-20 20:45] LABS: T3 TOTAL 1.13 ng/mL
[2019-05-20] MEDS ORDERED: PROMETHAZINE PO (20:45)
[2019-05-20] MEDS ORDERED: AMOX/CLAV POT1 TAB PO (20:47)
[2019-05-20 20:52] LABS: ERYTHROCYTE SED RATE 85 mm/hr (0-30)
[2019-05-20 20:59] LABS: FREE T4 0.98 ng/dL (0.76-1.46); FREE THYROXINE INDEX 1.9 ug/dL (1.4-4.5)
[2019-05-20 21:03] LABS: CK-MB < 0.5 ng/mL (0-3.6); CREATINE KINASE 62 U/L (26-192)
[2019-05-20 22:00] VITALS: BP 185/92
[2019-05-20 22:27] VITALS: BP 185/92
[2019-05-21] VITALS (19 sets, daily range): BP systolic 94–133; BP diastolic 44–77
[2019-05-21 05:31] LABS: BASOPHIL % 0.2 % (0-2); PLATELET COUNT 238 x10^3mcL (130-400); RED CELL DISTRIBUTION WIDTH 17.2 % (11.5-14.5)
[2019-05-21 06:24] LABS: CHLORIDE SERUM 100 mmol/L (98-107); CREATININE SERUM 1.2 mg/dL (0.6-1.0); GFR1 50 mL/min; GLUCOSE SERUM 429 mg/dL (74-106); MAGNESIUM 1.8 mg/dL (1.8-2.4); POTASSIUM SERUM 4.1 mmol/L (3.5-5.1); SODIUM SERUM 139 mmol/L (136-145)
[2019-05-22] VITALS (17 sets, daily range): BP systolic 105–133; BP diastolic 57–70
[2019-05-22 05:53] LABS: BASOPHIL % 0.3 % (0-2); PLATELET COUNT 231 x10^3mcL (130-400)
[2019-05-22 06:12] LABS: RED CELL DISTRIBUTION WIDTH 17.6 % (11.5-14.5)
[2019-05-22 06:23] LABS: CARBON DIOXIDE 29.6 mmol/L (21-32); CREATININE SERUM 3.2 mg/dL (0.6-1.0); POTASSIUM SERUM 3.8 mmol/L (3.5-5.1)
[2019-05-22 14:26] LABS: CALCIUM 8.2 mg/dL (8.5-10.1); CARBON DIOXIDE 30.5 mmol/L (21-32); CREATININE SERUM 3.5 mg/dL (0.6-1.0); POTASSIUM SERUM 3.9 mmol/L (3.5-5.1)
[2019-05-22 17:05] LABS: CALCIUM 8.2 mg/dL (8.5-10.1); CARBON DIOXIDE 30.4 mmol/L (21-32); CREATININE SERUM 3.5 mg/dL (0.6-1.0); POTASSIUM SERUM 4.3 mmol/L (3.5-5.1)
[2019-05-23] VITALS (18 sets, daily range): BP systolic 95–123; BP diastolic 45–64
[2019-05-23 05:51] LABS: BASOPHIL % 0.3 % (0-2); PLATELET COUNT 236 x10^3mcL (130-400)
[2019-05-23 06:00] LABS: CALCIUM 8.3 mg/dL (8.5-10.1); CARBON DIOXIDE 29.7 mmol/L (21-32); CREATININE SERUM 3.6 mg/dL (0.6-1.0); MAGNESIUM 2.2 mg/dL (1.8-2.4); POTASSIUM SERUM 4.2 mmol/L (3.5-5.1)
[2019-05-23 06:01] LABS: RED CELL DISTRIBUTION WIDTH 17.4 % (11.5-14.5)
[2019-05-24] VITALS (18 sets, daily range): BP systolic 85–140; BP diastolic 36–76
[2019-05-24 05:36] LABS: CALCIUM 8.2 mg/dL (8.5-10.1); CARBON DIOXIDE 28.4 mmol/L (21-32); CREATININE SERUM 3.6 mg/dL (0.6-1.0); MAGNESIUM 2.3 mg/dL (1.8-2.4); POTASSIUM SERUM 4.4 mmol/L (3.5-5.1)
[2019-05-24 05:42] LABS: BASOPHIL % 0.3 % (0-2); PLATELET COUNT 248 x10^3mcL (130-400)
[2019-05-24 05:45] LABS: RED CELL DISTRIBUTION WIDTH 17.6 % (11.5-14.5)
[2019-05-25] VITALS (17 sets, daily range): BP systolic 95–145; BP diastolic 43–77
[2019-05-25 05:18] LABS: BASOPHIL % 0.4 % (0-2); PLATELET COUNT 231 x10^3mcL (130-400)
[2019-05-25 05:26] LABS: RED CELL DISTRIBUTION WIDTH 17.7 % (11.5-14.5)
[2019-05-25 05:42] LABS: CALCIUM 8.4 mg/dL (8.5-10.1); CARBON DIOXIDE 30.9 mmol/L (21-32); CREATININE SERUM 3.1 mg/dL (0.6-1.0); MAGNESIUM 2.1 mg/dL (1.8-2.4); POTASSIUM SERUM 4.2 mmol/L (3.5-5.1)
[2019-05-26] VITALS (17 sets, daily range): BP systolic 91–125; BP diastolic 46–73
[2019-05-26 05:54] LABS: CALCIUM 8.6 mg/dL (8.5-10.1); CARBON DIOXIDE 28.3 mmol/L (21-32); CREATININE SERUM 3.1 mg/dL (0.6-1.0); POTASSIUM SERUM 4.3 mmol/L (3.5-5.1)
[2019-05-26 06:26] LABS: BASOPHIL % 0.3 % (0-2); PLATELET COUNT 255 x10^3mcL (130-400)
[2019-05-26 06:33] LABS: RED CELL DISTRIBUTION WIDTH 17.5 % (11.5-14.5)
[2019-05-27] VITALS (19 sets, daily range): BP systolic 89–165; BP diastolic 53–83
[2019-05-27 05:26] LABS: BASOPHIL % 0.2 % (0-2); PLATELET COUNT 271 x10^3mcL (130-400)
[2019-05-27 05:35] LABS: RED CELL DISTRIBUTION WIDTH 17.9 % (11.5-14.5)
[2019-05-27 05:52] LABS: CALCIUM 8.6 mg/dL (8.5-10.1)
[2019-05-27 05:55] LABS: CREATININE SERUM 5.1 mg/dL (0.6-1.0)
[2019-05-28] VITALS (19 sets, daily range): BP systolic 99–127; BP diastolic 52–71
[2019-05-28 04:19] LABS: BASOPHIL % 0.2 % (0-2); PLATELET COUNT 329 x10^3mcL (130-400)
[2019-05-28 04:23] LABS: RED CELL DISTRIBUTION WIDTH 17.5 % (11.5-14.5)
[2019-05-28 04:57] LABS: BILIRUBIN TOTAL 0.8 mg/dL (0.20-1.00); CARBON DIOXIDE 22.5 mmol/L (21-32); MAGNESIUM 2.6 mg/dL (1.8-2.4)
[2019-05-28 04:59] LABS: ALBUMIN 2.2 g/dL (3.4-5.0); TOTAL PROTEIN, SERUM 10.4 g/dL (6.4-8.2)
[2019-05-28 05:00] LABS: POTASSIUM SERUM 5.2 mmol/L (3.5-5.1)
[2019-05-28 08:01] LABS: CREATININE SERUM 5.7 mg/dL (0.6-1.0)
[2019-05-29] VITALS (18 sets, daily range): BP systolic 106–155; BP diastolic 37–96
[2019-05-29 06:05] LABS: BASOPHIL % 0 % (0-2); RED CELL DISTRIBUTION WIDTH 17.8 % (11.5-14.5)
[2019-05-29 06:07] LABS: PLATELET COUNT 389 x10^3mcL (130-400)
[2019-05-29 07:42] LABS: BILIRUBIN TOTAL 0.7 mg/dL (0.20-1.00); CALCIUM 8.9 mg/dL (8.5-10.1); CARBON DIOXIDE 20.5 mmol/L (21-32); MAGNESIUM 3.8 mg/dL (1.8-2.4); POTASSIUM SERUM 5.5 mmol/L (3.5-5.1)
[2019-05-29 07:45] LABS: ALBUMIN 2.1 g/dL (3.4-5.0); TOTAL PROTEIN, SERUM 9.3 g/dL (6.4-8.2)
[2019-05-29 07:46] LABS: CREATININE SERUM 7.9 mg/dL (0.6-1.0)
[2019-05-29 18:45] LABS: CALCIUM 9.3 mg/dL (8.5-10.1); CARBON DIOXIDE 22.8 mmol/L (21-32); POTASSIUM SERUM 5.1 mmol/L (3.5-5.1)
[2019-05-29 18:49] LABS: CREATININE SERUM 6.4 mg/dL (0.6-1.0)
[2019-05-30] VITALS (18 sets, daily range): BP systolic 103–152; BP diastolic 53–85
[2019-05-30 05:33] LABS: BASOPHIL % 0.5 % (0-2)
[2019-05-30 05:48] LABS: PLATELET COUNT 402 x10^3mcL (130-400); RED CELL DISTRIBUTION WIDTH 17.9 % (11.5-14.5)
[2019-05-30 06:04] LABS: BILIRUBIN TOTAL 0.78 mg/dL (0.20-1.00); CALCIUM 9.4 mg/dL (8.5-10.1); MAGNESIUM 3.5 mg/dL (1.8-2.4)
[2019-05-30 06:08] LABS: ALBUMIN 2.1 g/dL (3.4-5.0); TOTAL PROTEIN, SERUM 10.1 g/dL (6.4-8.2)
[2019-05-30 06:09] LABS: POTASSIUM SERUM 5.6 mmol/L (3.5-5.1)
[2019-05-30 06:10] LABS: CREATININE SERUM 7.3 mg/dL (0.6-1.0)
[2019-05-31] VITALS (17 sets, daily range): BP systolic 83–144; BP diastolic 45–82
[2019-05-31 02:52] LABS: BILIRUBIN TOTAL 0.8 mg/dL (0.20-1.00); CALCIUM 9.1 mg/dL (8.5-10.1); POTASSIUM SERUM 5.4 mmol/L (3.5-5.1)
[2019-05-31 02:55] LABS: ALBUMIN 2.1 g/dL (3.4-5.0)
[2019-05-31 02:56] LABS: CREATININE SERUM 7.5 mg/dL (0.6-1.0)
[2019-05-31 05:32] LABS: PLATELET COUNT 404 x10^3mcL (130-400); RED CELL DISTRIBUTION WIDTH 17.6 % (11.5-14.5)
[2019-05-31 05:55] LABS: BAND NEUTROPHIL 2 % (0-10); METAMYELOCTE 4 % (0-2); MONOCYTE 3 % (0-7); SEGMENTED NEUTROPHILS 78 % (37-75)
[2019-05-31 05:57] LABS: rbc morphology (normal/abnorm) NORMAL (NORMAL)
[2019-05-31 06:04] LABS: BILIRUBIN TOTAL 0.7 mg/dL (0.20-1.00); CALCIUM 9.2 mg/dL (8.5-10.1); CARBON DIOXIDE 19.3 mmol/L (21-32); MAGNESIUM 3.9 mg/dL (1.8-2.4); POTASSIUM SERUM 5.4 mmol/L (3.5-5.1)
[2019-05-31 06:07] LABS: ALBUMIN 2.2 g/dL (3.4-5.0)
[2019-06-01] VITALS (18 sets, daily range): BP systolic 79–138; BP diastolic 41–73
[2019-06-01 05:26] LABS: PLATELET COUNT 355 x10^3mcL (130-400)
[2019-06-01 05:38] LABS: RED CELL DISTRIBUTION WIDTH 17.7 % (11.5-14.5)
[2019-06-01 06:11] LABS: BAND NEUTROPHIL 2 % (0-10); METAMYELOCTE 6 % (0-2); MONOCYTE 3 % (0-7); SEGMENTED NEUTROPHILS 82 % (37-75)
[2019-06-01 06:12] LABS: PLATELET MORPHOLOGY GIANT PLATELET SEEN
[2019-06-01 06:24] LABS: BILIRUBIN TOTAL 0.7 mg/dL (0.20-1.00); CALCIUM 8.3 mg/dL (8.5-10.1); CARBON DIOXIDE 24.6 mmol/L (21-32); MAGNESIUM 2.9 mg/dL (1.8-2.4); POTASSIUM SERUM 4.4 mmol/L (3.5-5.1)
[2019-06-01 06:33] LABS: TOTAL PROTEIN, SERUM 8.6 g/dL (6.4-8.2)
[2019-06-01 06:34] LABS: ALBUMIN 2.2 g/dL (3.4-5.0); CREATININE SERUM 6.7 mg/dL (0.6-1.0)
[2019-06-01 09:02] LABS: rbc morphology (normal/abnorm) ABNORMAL (NORMAL)
[2019-06-02] VITALS (20 sets, daily range): BP systolic 111–1118; BP diastolic 61–83
[2019-06-02 05:34] LABS: PLATELET COUNT 349 x10^3mcL (130-400)
[2019-06-02 05:42] LABS: RED CELL DISTRIBUTION WIDTH 17.8 % (11.5-14.5)
[2019-06-02 06:32] LABS: BILIRUBIN TOTAL 0.6 mg/dL (0.20-1.00); CALCIUM 8.6 mg/dL (8.5-10.1); CARBON DIOXIDE 21.3 mmol/L (21-32); MAGNESIUM 2.5 mg/dL (1.8-2.4); POTASSIUM SERUM 4.8 mmol/L (3.5-5.1)
[2019-06-02 06:39] LABS: ALBUMIN 1.9 g/dL (3.4-5.0); CREATININE SERUM 6.4 mg/dL (0.6-1.0); TOTAL PROTEIN, SERUM 9.2 g/dL (6.4-8.2)
[2019-06-02 11:50] LABS: BAND NEUTROPHIL 0 % (0-10); BASOPHIL 0 % (0-2); MONOCYTE 13 % (0-7); SEGMENTED NEUTROPHILS 82 % (37-75)
[2019-06-02 11:51] LABS: PLATELET MORPHOLOGY PLATELETS INCREASED; rbc morphology (normal/abnorm) ABNORMAL (NORMAL)
[2019-06-03] VITALS (17 sets, daily range): BP systolic 114–155; BP diastolic 60–88
[2019-06-03 05:26] LABS: PLATELET COUNT 371 x10^3mcL (130-400)
[2019-06-03 05:48] LABS: RED CELL DISTRIBUTION WIDTH 17.5 % (11.5-14.5)
[2019-06-03 06:00] LABS: BILIRUBIN TOTAL 0.5 mg/dL (0.20-1.00); CALCIUM 8.7 mg/dL (8.5-10.1); CARBON DIOXIDE 20.9 mmol/L (21-32); MAGNESIUM 2.6 mg/dL (1.8-2.4)
[2019-06-03 06:06] LABS: ALBUMIN 1.9 g/dL (3.4-5.0); TOTAL PROTEIN, SERUM 9.5 g/dL (6.4-8.2)
[2019-06-03 06:07] LABS: POTASSIUM SERUM 5.7 mmol/L (3.5-5.1)
[2019-06-03 06:08] LABS: CREATININE SERUM 6.2 mg/dL (0.6-1.0)
[2019-06-03 11:34] LABS: BAND NEUTROPHIL 2 % (0-10); MONOCYTE 3 % (0-7); SEGMENTED NEUTROPHILS 87 % (37-75)
[2019-06-03 11:36] LABS: rbc morphology (normal/abnorm) NORMAL (NORMAL)
[2019-06-04] VITALS (19 sets, daily range): BP systolic 116–169; BP diastolic 45–82
[2019-06-04 05:00] LABS: PLATELET COUNT 388 x10^3mcL (130-400)
[2019-06-04 05:12] LABS: RED CELL DISTRIBUTION WIDTH 17.5 % (11.5-14.5)
[2019-06-04 05:17] LABS: CALCIUM 7.8 mg/dL (8.5-10.1); CARBON DIOXIDE 19.3 mmol/L (21-32)
[2019-06-04 05:21] LABS: BAND NEUTROPHIL 4 % (0-10); METAMYELOCTE 1 % (0-2); MONOCYTE 1 % (0-7); SEGMENTED NEUTROPHILS 87 % (37-75)
[2019-06-04 05:22] LABS: PLATELET MORPHOLOGY PLATELETS NORMAL; rbc morphology (normal/abnorm) ABNORMAL (NORMAL)
[2019-06-04 05:34] LABS: CREATININE SERUM 6.7 mg/dL (0.6-1.0)
[2019-06-04 05:35] LABS: POTASSIUM SERUM 5.8 mmol/L (3.5-5.1)
[2019-06-05] VITALS (18 sets, daily range): BP systolic 101–142; BP diastolic 46–67
[2019-06-05 04:57] LABS: PLATELET COUNT 316 x10^3mcL (130-400)
[2019-06-05 05:00] LABS: CALCIUM 7.3 mg/dL (8.5-10.1); CARBON DIOXIDE 19.2 mmol/L (21-32)
[2019-06-05 05:08] LABS: CREATININE SERUM 7.9 mg/dL (0.6-1.0)
[2019-06-05 05:49] LABS: METAMYELOCTE 3 % (0-2); MONOCYTE 5 % (0-7); SEGMENTED NEUTROPHILS 87 % (37-75); rbc morphology (normal/abnorm) NORMAL (NORMAL)
[2019-06-05 05:50] LABS: PLATELET MORPHOLOGY LARGE PLATELET SEEN
[2019-06-06] VITALS (19 sets, daily range): BP systolic 92–135; BP diastolic 51–77
[2019-06-06 05:29] LABS: PLATELET COUNT 283 x10^3mcL (130-400)
[2019-06-06 05:49] LABS: BILIRUBIN TOTAL 0.4 mg/dL (0.20-1.00); CALCIUM 7.4 mg/dL (8.5-10.1); CARBON DIOXIDE 26.9 mmol/L (21-32); MAGNESIUM 2.5 mg/dL (1.8-2.4); POTASSIUM SERUM 4.6 mmol/L (3.5-5.1)
[2019-06-06 05:50] LABS: TOTAL PROTEIN, SERUM 8.9 g/dL (6.4-8.2)
[2019-06-06 05:52] LABS: CREATININE SERUM 5.9 mg/dL (0.6-1.0)
[2019-06-06 06:11] LABS: RED CELL DISTRIBUTION WIDTH 17.9 % (11.5-14.5)
[2019-06-06 07:12] LABS: BAND NEUTROPHIL 2 % (0-10); METAMYELOCTE 2 % (0-2); MONOCYTE 2 % (0-7); SEGMENTED NEUTROPHILS 91 % (37-75)
[2019-06-06 07:17] LABS: PLATELET MORPHOLOGY PLATELETS NORMAL; rbc morphology (normal/abnorm) NORMAL (NORMAL)
[2019-06-07] VITALS (17 sets, daily range): BP systolic 106–146; BP diastolic 37–86; Ht 154.9 cm; Wt 109.9 kg
[2019-06-07 05:24] LABS: BILIRUBIN TOTAL 0.51 mg/dL (0.20-1.00); CALCIUM 7.8 mg/dL (8.5-10.1); CARBON DIOXIDE 29.4 mmol/L (21-32); MAGNESIUM 2.3 mg/dL (1.8-2.4); POTASSIUM SERUM 4.1 mmol/L (3.5-5.1)
[2019-06-07 05:30] LABS: ALBUMIN 1.9 g/dL (3.4-5.0); TOTAL PROTEIN, SERUM 8.8 g/dL (6.4-8.2)
[2019-06-07 05:31] LABS: CREATININE SERUM 4.9 mg/dL (0.6-1.0)
[2019-06-07 05:36] LABS: PLATELET COUNT 290 x10^3mcL (130-400)
[2019-06-07 05:38] LABS: RED CELL DISTRIBUTION WIDTH 17.3 % (11.5-14.5)
[2019-06-07 09:29] LABS: BAND NEUTROPHIL 0 % (0-10); BASOPHIL 0 % (0-2); MONOCYTE 11 % (0-7); SEGMENTED NEUTROPHILS 81 % (37-75); rbc morphology (normal/abnorm) ABNORMAL (NORMAL)
[2019-06-08] VITALS (17 sets, daily range): BP systolic 106–155; BP diastolic 63–81
[2019-06-08 05:26] LABS: PLATELET COUNT 318 x10^3mcL (130-400)
[2019-06-08 05:36] LABS: RED CELL DISTRIBUTION WIDTH 17.9 % (11.5-14.5)
[2019-06-08 05:45] LABS: CALCIUM 7.7 mg/dL (8.5-10.1); CARBON DIOXIDE 22.6 mmol/L (21-32); POTASSIUM SERUM 3.7 mmol/L (3.5-5.1)
[2019-06-08 05:49] LABS: CREATININE SERUM 4.9 mg/dL (0.6-1.0)
[2019-06-08 06:33] LABS: BAND NEUTROPHIL 3 % (0-10); BASOPHIL 0 % (0-2); MONOCYTE 2 % (0-7); SEGMENTED NEUTROPHILS 88 % (37-75); rbc morphology (normal/abnorm) NORMAL (NORMAL)
[2019-06-09] VITALS (12 sets, daily range): BP systolic 103–153; BP diastolic 65–88
[2019-06-09 06:11] LABS: PLATELET COUNT 318 x10^3mcL (130-400)
[2019-06-09 06:29] LABS: BILIRUBIN TOTAL 0.4 mg/dL (0.20-1.00); CALCIUM 7.1 mg/dL (8.5-10.1); CARBON DIOXIDE 19.7 mmol/L (21-32); MAGNESIUM 2.7 mg/dL (1.8-2.4); POTASSIUM SERUM 4.2 mmol/L (3.5-5.1)
[2019-06-09 06:44] LABS: ALBUMIN 2.1 g/dL (3.4-5.0); TOTAL PROTEIN, SERUM 9.1 g/dL (6.4-8.2)
[2019-06-09 06:45] LABS: CREATININE SERUM 6.4 mg/dL (0.6-1.0)
[2019-06-09 07:43] LABS: RED CELL DISTRIBUTION WIDTH 17.6 % (11.5-14.5)
== END 2019-06-09 19:37 | disposition expired | DRG 720 ==
LOC: ED 19:09 → IC 21:16 → DU 21:16 → IC 23:05
PROVIDERS: Internal Medicine; Internal Medicine Nephrology; Internal Medicine Pulmonary Disease; Specialist; ADMIT Internal Medicine Pulmonary Disease
PROC: 5A09357 Assistance with Respiratory Ventilation, Less than 24 Consecutive Hours, Continuous Positive Airway Pressure (ICD-10-PCS; 2019-05-20)
PROC: 5A1955Z Respiratory Ventilation, Greater than 96 Consecutive Hours (ICD-10-PCS; principal; 2019-05-21)
PROC: 0BH17EZ Insertion of Endotracheal Airway into Trachea, Via Natural or Artificial Opening (ICD-10-PCS; 2019-05-21)
PROC: 5A1D70Z Performance of Urinary Filtration, Intermittent, Less than 6 Hours Per Day (ICD-10-PCS; 2019-05-24)
PROC: 02HV33Z Insertion of Infusion Device into Superior Vena Cava, Percutaneous Approach (ICD-10-PCS; 2019-05-24)
PROC: B548ZZA Ultrasonography of Superior Vena Cava, Guidance (ICD-10-PCS; 2019-05-24)
PROC: 5A1D70Z Performance of Urinary Filtration, Intermittent, Less than 6 Hours Per Day (ICD-10-PCS; 2019-05-25)
PROC: 5A1D70Z Performance of Urinary Filtration, Intermittent, Less than 6 Hours Per Day (ICD-10-PCS; 2019-05-26)
PROC: 5A1D70Z Performance of Urinary Filtration, Intermittent, Less than 6 Hours Per Day (ICD-10-PCS; 2019-05-27)
PROC: 5A1D70Z Performance of Urinary Filtration, Intermittent, Less than 6 Hours Per Day (ICD-10-PCS; 2019-05-29)
PROC: 5A1D70Z Performance of Urinary Filtration, Intermittent, Less than 6 Hours Per Day (ICD-10-PCS; 2019-05-30)
PROC: 5A1D70Z Performance of Urinary Filtration, Intermittent, Less than 6 Hours Per Day (ICD-10-PCS; 2019-05-31)
PROC: 05PYX3Z Removal of Infusion Device from Upper Vein, External Approach (ICD-10-PCS; 2019-05-31)
PROC: 02HV33Z Insertion of Infusion Device into Superior Vena Cava, Percutaneous Approach (ICD-10-PCS; 2019-05-31)
PROC: 02HV33Z Insertion of Infusion Device into Superior Vena Cava, Percutaneous Approach (ICD-10-PCS; 2019-05-31)
PROC: B548ZZA Ultrasonography of Superior Vena Cava, Guidance (ICD-10-PCS; 2019-05-31)
PROC: 5A1D70Z Performance of Urinary Filtration, Intermittent, Less than 6 Hours Per Day (ICD-10-PCS; 2019-06-01)
PROC: 02HV33Z Insertion of Infusion Device into Superior Vena Cava, Percutaneous Approach (ICD-10-PCS; 2019-06-01)
PROC: 5A1D70Z Performance of Urinary Filtration, Intermittent, Less than 6 Hours Per Day (ICD-10-PCS; 2019-06-02)
PROC: 5A1D70Z Performance of Urinary Filtration, Intermittent, Less than 6 Hours Per Day (ICD-10-PCS; 2019-06-03)
PROC: 5A1D70Z Performance of Urinary Filtration, Intermittent, Less than 6 Hours Per Day (ICD-10-PCS; 2019-06-04)
PROC: 5A1D70Z Performance of Urinary Filtration, Intermittent, Less than 6 Hours Per Day (ICD-10-PCS; 2019-06-05)
PROC: 02HV33Z Insertion of Infusion Device into Superior Vena Cava, Percutaneous Approach (ICD-10-PCS; 2019-06-05)
PROC: B548ZZA Ultrasonography of Superior Vena Cava, Guidance (ICD-10-PCS; 2019-06-05)
PROC: 5A1D70Z Performance of Urinary Filtration, Intermittent, Less than 6 Hours Per Day (ICD-10-PCS; 2019-06-06)
PROC: 5A1D70Z Performance of Urinary Filtration, Intermittent, Less than 6 Hours Per Day (ICD-10-PCS; 2019-06-07)
DX: A41.9 Sepsis, unspecified organism (principal); J96.21 Acute and chronic respiratory failure with hypoxia; N17.0 Acute kidney failure with tubular necrosis; I50.33 Acute on chronic diastolic (congestive) heart failure; J18.9 Pneumonia, unspecified organism; D69.6 Thrombocytopenia, unspecified; E11.22 Type 2 diabetes mellitus with diabetic chronic kidney disease; E87.2 Acidosis; E66.2 Morbid (severe) obesity with alveolar hypoventilation; Z68.43 Body mass index [BMI] 50.0-59.9, adult; M32.9 Systemic lupus erythematosus, unspecified; R65.20 Severe sepsis without septic shock; J96.22 Acute and chronic respiratory failure with hypercapnia; J32.9 Chronic sinusitis, unspecified; T82.41XA Breakdown (mechanical) of vascular dialysis catheter, initial encounter; Z51.5 Encounter for palliative care; Y83.9 Surgical procedure, unspecified as the cause of abnormal reaction of the patient, or of later complication, without mention of misadventure at the time of the procedure; E78.5 Hyperlipidemia, unspecified; N18.1 Chronic kidney disease, stage 1; I13.0 Hypertensive heart and chronic kidney disease with heart failure and stage 1 through stage 4 chronic kidney disease, or unspecified chronic kidney disease; E87.5 Hyperkalemia; R79.89 Other specified abnormal findings of blood chemistry; R34 Anuria and oliguria; Z99.2 Dependence on renal dialysis; Z98.51 Tubal ligation status; Z90.49 Acquired absence of other specified parts of digestive tract; Z79.82 Long term (current) use of aspirin; Z79.4 Long term (current) use of insulin; Z79.899 Other long term (current) drug therapy
CPT/HCPCS: 36556; 36600; 82962; 83880; 84439; 87804; A4301; A4628; A4719; C1894; G0378; J0696; J1642; J1644; J1650; J1815; J1940; J1956; J2001; J2060; J2150; J2250; J2270; J2543; J2704; J2920; J2997; J3010; J3370; J3490; J7030; J7040; J7050; J7613; J7626; J7644; P9047; Q0092; Q9967